=== PATIENT | male | born 1970 | race Caucasian/White ===

== ENCOUNTER 2016-12-19 23:14 | Emergency (ER) | payer BC ==
--- NOTE | 2016-12-19 23:55 | PDOC ---
History of Present Illness - General Stated Complaint: RT HAND INJURY Time Seen by Provider: 12/19/16 23:36 History Source: Patient Exam Limitations: Intoxication - History of Present Illness Initial Comments: 12/19/16 23:53 46yo Male patient w/ PmHx: Mitral Valve prolapse, GERD presents to ED c/o right hand injury. Patient states he was "sparing with a friend practicing mixed martial arts" when injury occurred. Patient denies any other complaints at this time. Patient appears under the influence of alcohol during examination. Occurred: reports: just prior to arrival Severity: reports: severe Upper Extremity Pain Location: right: hand Method of Injury: reports: other (See HPI) Modifying Factors: improves with: None Extremity Pain Location - Extremity Pain Location Extremity Pain Locations: right: 5th finger, hand Past History - Travel Traveled outside of the country in the last 30 days: No Close contact w/someone who was outside of country & ill: No - Past Medical History Allergies/Adverse Reactions: Allergies Allergy/AdvReac Type Severity Reaction Status Date / Time No Known Drug Allergies Allergy Verified 12/20/16 00:01 Home Medications: Ambulatory Orders Aspirin [ASA -] 81 mg PO DAILY 03/15/14 Metoprolol Tartrate 50 mg PO DAILY 03/15/14 Oxycodone HCl/Acetaminophen [Percocet 5-325 mg Tablet] 1 tab PO Q4H PRN Alprazolam 0.25 mg PO PRN 10/30/15 Celecoxib [Celebrex] 200 mg PO BID 10/30/15 Cholecalciferol (Vitamin D3) [Vitamin D] 2,000 unit PO DAILY 10/30/15 Cyclobenzaprine HCl [Flexeril] 5 mg PO HS 10/30/15 Folic Acid 1 mg PO DAILY 10/30/15 Omeprazole [Prilosec (RX)] 20 mg PO DAILY 10/30/15 Sulfasalazine [Azulfidine] 1,000 mg PO BID 10/30/15 Cefuroxime Axetil [Ceftin] 500 mg PO BID #10 tablet 11/01/15 Methotrexate Sodium [Methotrexate] 9 tab PO WEEKLY 11/01/15 Oxycodone HCl/Acetaminophen [Percocet 5-325 mg Tablet -] 1 tab PO Q4H PRN #20 tablet 11/01/15 Ibuprofen [Motrin -] 600 mg PO Q6H PRN #30 tablet 12/20/16 Oxycodone HCl/Acetaminophen [Percocet 5-325 mg Tablet] 1 tab PO Q6H PRN #20 tablet MDD 4 TABS 12/20/16 Anemia: No Asthma: No Cancer: No Cardiac Disorders: Yes (mvp, A FIB) CVA: No COPD: No CHF: No Dementia: No Diabetes: No GI Disorders: Yes (gerd) Disorders: No HTN: No Hypercholesterolemia: No Liver Disease: No Seizures: No Thyroid Disease: No - Surgical History Abdominal Surgery: No Appendectomy: No Cardiac Surgery: No Cholecystectomy: No Lung Surgery: No Neurologic Surgery: No Orthopedic Surgery: No - Immunization History Td Vaccination: Yes TDAP Vaccination: No Immunization Up to Date: (tetanus 4 yrs ago) - Psycho/Social/Smoking Cessation Hx Anxiety: No Suicidal Ideation: No Smoking Status: No Smoking History: Never smoked Years of Tobacco Use: 0 Have you smoked in the past 12 months: No Number of Cigarettes Smoked Daily: 0 Cigars Per Day: 0 Hx Alcohol Use: Yes (social) Drug/Substance Use Hx: Yes (daily) Substance Use Type: None, Marijuana Hx Substance Use Treatment: No Review of Systems - Review of Systems Able to Perform ROS?: Yes Is the patient limited Mauritanian proficient: No Musculoskeletal: Yes: Other (Hand injury with swelling.) All Other Systems: Reviewed and Negative *Physical Exam - Physical Exam General Appearance: Yes: Nourished, Appropriately Dressed, Alcohol on Breath. No: Apparent Distress, Mild Distress, Moderate Distress, Severe Distress Neck: positive: Trachea midline, Supple. negative: Decreased range of motion, Stridor, Lymphadenopathy (R), Lymphadenopathy (L) Respiratory/Chest: positive: Lungs Clear, Normal Breath Sounds. negative: Respiratory Distress, Accessory Muscle Use, Labored Respiration, Rapid RR Cardiovascular: positive: Regular Rhythm, Regular Rate. negative: Edema, JVD, Murmur Musculoskeletal: positive: Normal Inspection. 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 ED Treatment Course - LABORATORY CBC & Chemistry Diagram: 12/20/16 00:41 12/20/16 00:41 - RADIOLOGY Radiology Studies Ordered: Category Date Time Status WRIST W/HAND-RIGHT* [RAD] Stat Radiology 12/19/16 23:49 Ordered *DC/Admit/Observation/Transfer Diagnosis at time of Disposition: Boxer's fracture Qualifiers: Encounter type: initial encounter Fracture type: closed Qualified Code(s): S62.309A - Unspecified fracture of unspecified metacarpal bone, initial encounter for closed fracture - Discharge Dispostion Disposition: HOME Condition at time of disposition: Improved Admit: No - Prescriptions Prescriptions: Ibuprofen [Motrin -] 600 mg PO Q6H PRN #30 tablet PRN Reason: Mild Pain Oxycodone HCl/Acetaminophen [Percocet 5-325 mg Tablet] 1 tab PO Q6H PRN #20 tablet MDD 4 TABS PRN Reason: Severe Pain - Referrals Referrals: Ozzie Rodriguez MD [Primary Care Provider] - Howard Sharpe MD [Staff Physician] - - Patient Instructions Printed Discharge Instructions: How to Use a Sling, DI for Boxer's Fracture Additional Instructions: FOLLOW UP WITH DR. SHARPE (ORTHOPEDIC) THIS WEEK. CALL TO SCHEDULE APPOINTMENT. YOU MUST SEE AN ORTHOPEDIC THIS WEEK. KEEP SPLINT APPLIED. DO NOT REMOVE OR YOU RISK CAUSING FURTHER INJURY. CONTINUE TO APPLY COLD COMPRESS TO AFFECTED AREA. MOTRIN FOR MILD PAIN AND PERCOCET FOR SEVERE PAIN. KEEP ARM IN SLING WHILE OUT OF BED, KEEP ARM ELEVATED ON TOP OF PILLOW WHILE RESTING. RETURN IF ANY CONCERNS FOR FURTHER EVALUATION. Print Language: MOLDOVAN - Post Discharge Activity Work/School Note: Back to Work
[2016-12-20 00:02] VITALS: BP 138/79; PULSE 98; TEMP 97.6; BMI 27.5
[2016-12-20 01:05] LABS: BASOPHIL 0.6 % (0-2.0); EOSINOPHIL 0.5 % (0-4.5); MCH 31.4 pg (25.7-33.7); MEAN CELL VOLUME 92.2 fl (80-96); MEAN PLT VOLUME 7.1 fl (7.5-11.1); NEUTROPHILS 35.7 % (42.8-82.8); PLATELET COUNT 224 K/MM3 (134-434); RDW 13.6 % (11.9-15.9); WHITE BLOOD COUNT 3.6 K/mm3 (4.0-10.0)
[2016-12-20 01:25] LABS: ALBUMIN 4.4 g/dl (3.4-5.0); ALK PHOS 51 U/L (45-117); ANION GAP 10 (8-16); BILIRUBIN,TOTAL 0.7 mg/dL (0.2-1.0); CALCIUM 8.6 mg/dL (8.5-10.1); CO2 29 mmol/L (21-32); CREATININE 0.8 mg/dL (0.7-1.3); GLUCOSE,RANDOM 98 mg/dL (74-106); SGOT/AST 21 U/L (15-37); SGPT/ALT 30 U/L (12-78); TOT PROT 7.4 g/dl (6.4-8.2)
== END 2016-12-20 03:16 | disposition home or self-care (01) ==
LOC: JER 23:14
PROC: 2W3CX1Z Immobilization of Right Lower Arm using Splint (ICD-10-PCS; principal; 2016-12-19)
DX: S62.396A Other fracture of fifth metacarpal bone, right hand, initial encounter for closed fracture (principal); W50.0XXA Accidental hit or strike by another person, initial encounter; Y93.75 Activity, martial arts; Y92.89 Other specified places as the place of occurrence of the external cause; Y99.8 Other external cause status
CPT/HCPCS: 36415; 73110-TC-RT; 73130-TC-RT; 80053; 80307; 85025; 99281-25

== ENCOUNTER 2016-12-21 12:04 | Emergency (ER) | payer BC ==
[2016-12-21 12:09] VITALS: BP 131/90; PULSE 88; TEMP 98.3; BMI 27.5
--- NOTE | 2016-12-21 13:09 | PDOC ---
History of Present Illness - General Chief Complaint: Pain Stated Complaint: SWOLLEN RT ARM Time Seen by Provider: 12/21/16 12:17 History Source: Patient Exam Limitations: No Limitations - History of Present Illness Initial Comments: 12/21/16 12:46 46 year old male with history of htn, mitral valve prolapse, GERD and anxiety presents complaining of swelling of right hand, has a boxer splint in place. Reports being seen yesterday for boxer fracture went home, could not tolerate the splint so he removed it . He and his girlfriend replaced it but concerned that it is on incorrectly because of pain and swelling in hand. Taking percocets which is effective. Requesting correct replacement of splint. 12/21/16 18:48 Timing/Duration: 24 hours Severity: mild Modifying Factors: improves with: immobilization, medication Associated Symptoms: reports: denies symptoms Aspirin Received prior to arrival: Yes: no aspirin today Asa Contraindications(Core Measure): No: Allergy Beta Benita Contraindications(Core Measure): No: Not Prescribed Beta Benita Given by EMS(Core Measure): No Beta Benita Taken at Home(Core Measure): No Beta Benita Not Indicated at this Time(Core Measure): No Past History - Travel Traveled outside of the country in the last 30 days: No Close contact w/someone who was outside of country & ill: No - Past Medical History Allergies/Adverse Reactions: Allergies Allergy/AdvReac Type Severity Reaction Status Date / Time No Known Drug Allergies Allergy Verified 12/21/16 12:06 Home Medications: Ambulatory Orders Aspirin [ASA -] 81 mg PO DAILY 03/15/14 Metoprolol Tartrate 50 mg PO DAILY 03/15/14 Oxycodone HCl/Acetaminophen [Percocet 5-325 mg Tablet] 1 tab PO Q4H PRN Alprazolam 0.25 mg PO PRN 10/30/15 Celecoxib [Celebrex] 200 mg PO BID 10/30/15 Cholecalciferol (Vitamin D3) [Vitamin D] 2,000 unit PO DAILY 10/30/15 Cyclobenzaprine HCl [Flexeril] 5 mg PO HS 10/30/15 Folic Acid 1 mg PO DAILY 10/30/15 Omeprazole [Prilosec (RX)] 20 mg PO DAILY 10/30/15 Sulfasalazine [Azulfidine] 1,000 mg PO BID 10/30/15 Cefuroxime Axetil [Ceftin] 500 mg PO BID #10 tablet 11/01/15 Methotrexate Sodium [Methotrexate] 9 tab PO WEEKLY 11/01/15 Oxycodone HCl/Acetaminophen [Percocet 5-325 mg Tablet -] 1 tab PO Q4H PRN #20 tablet 11/01/15 Ibuprofen [Motrin -] 600 mg PO Q6H PRN #30 tablet 12/20/16 Oxycodone HCl/Acetaminophen [Percocet 5-325 mg Tablet] 1 tab PO Q6H PRN #20 tablet MDD 4 TABS 12/20/16 Anemia: No Asthma: No Cancer: No Cardiac Disorders: Yes (mvp, A FIB) CVA: No COPD: No CHF: No Dementia: No Diabetes: No GI Disorders: Yes (gerd) Disorders: No HTN: No Hypercholesterolemia: No Liver Disease: No Seizures: No Thyroid Disease: No - Surgical History Abdominal Surgery: No Appendectomy: No Cardiac Surgery: No Cholecystectomy: No Lung Surgery: No Neurologic Surgery: No Orthopedic Surgery: No - Immunization History Td Vaccination: Yes TDAP Vaccination: No Immunization Up to Date: (tetanus 4 yrs ago) - Psycho/Social/Smoking Cessation Hx Anxiety: No Suicidal Ideation: No Smoking Status: No Smoking History: Never smoked Years of Tobacco Use: 0 Have you smoked in the past 12 months: No Number of Cigarettes Smoked Daily: 0 Cigars Per Day: 0 Information on smoking cessation initiated: No Hx Alcohol Use: No Drug/Substance Use Hx: No Substance Use Type: None, Marijuana Hx Substance Use Treatment: No Review of Systems - Review of Systems Able to Perform ROS?: Yes Is the patient limited Nauruan proficient: No Constitutional: No: Chills, Fever HEENTM: No: Double Vision, Ear Discharge, Nose Congestion, Throat Pain, Throat Swelling Respiratory: No: Cough, Orthopnea, Shortness of Breath, Productive cough Cardiac (ROS): No: Chest Pain, Lightheadedness ABD/GI: No: Difficulty Swallowing, Nausea, Vomiting, Indigestion : No: Burning, Hematuria, Incontinence Musculoskeletal: Yes: Other (right hand pain and swelling) Integumentary: No: Bruising, Erythema Neurological: No: Headache, Numbness, Paresthesia *Physical Exam - Vital Signs Last Vital Signs Temp Pulse Resp BP Pulse Ox 98.3 F 88 18 131/90 100 12/21/16 12:06 12/21/16 12:06 12/21/16 12:06 12/21/16 12:06 12/21/16 12:06 - Physical Exam General Appearance: Yes: Nourished, Appropriately Dressed. No: Apparent Distress HEENT: positive: EOMI, CARLINE, TMs Normal, Pharynx Normal Neck: positive: Supple. negative: Lymphadenopathy (R), Lymphadenopathy (L) Respiratory/Chest: positive: Lungs Clear, Normal Breath Sounds. 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-XII NML intact, Fully Oriented, Alert Medical Decision Making - Medical Decision Making 12/21/16 13:09 46 year old male with history of Htn and mitral valve prolapse and GERD, removed cast causing pain and swelling of right hand -boxer splint replaced: strongly recommend leaving splint in place until seen by orthopedics -continue with pain regimen 12/21/16 18:49 *DC/Admit/Observation/Transfer Diagnosis at time of Disposition: Boxer's fracture Qualifiers: Encounter type: sequela Qualified Code(s): S62.309S - Unspecified fracture of unspecified metacarpal bone, sequela - Discharge Dispostion Disposition: HOME Condition at time of disposition: Good Admit: No - Referrals Referrals: Duran Rizo MD [Staff Physician] - - Patient Instructions Printed Discharge Instructions: How to Use a Sling, DI for Boxer's Fracture Additional Instructions: Keep splint in place and dry. Call orthopedic office first thing in am for follow up appointment. Take pain medication as previously directed - Post Discharge Activity Work/School Note: Back to Work
== END 2016-12-21 13:14 | disposition home or self-care (01) ==
LOC: JERFT 12:04
PROC: 2W3CX1Z Immobilization of Right Lower Arm using Splint (ICD-10-PCS; principal; 2016-12-21)
DX: S62.346D Nondisplaced fracture of base of fifth metacarpal bone, right hand, subsequent encounter for fracture with routine healing (principal)
CPT/HCPCS: 99282-25

== ENCOUNTER 2017-01-09 11:03 | Day surgery (SDC) | payer BC ==
[2017-01-08 10:43] VITALS: BMI 28.8
[2017-01-09 12:42] VITALS: TEMP 98.3
[2017-01-09 13:32] VITALS: BP 127/82; PULSE 80
--- NOTE | 2017-01-12 13:33 | PATH ---
Surgical Pathology Report Patient Name: ARPIT DURANT Med. Rec. #: [id number] /Age/Gender: 1970 (Age: 46) / M Account: [id number] Location: [facility]-ENDOSCOPY Taken: 01/09/2017 Received: 01/09/2017 Reported: 01/12/2017 Physicians: Dee Dee Shine M.D. Specimen(s) Received A: BX ILEUM B: BX CECUM Clinical History Altered bowel habits, unexplained diarrhea, polyp surveillance Spastic colon Final Diagnosis A. ILEUM, BIOPSY: ILEUM MUCOSA WITHOUT SIGNIFICANT PATHOLOGIC CHANGES. NO EVIDENCE OF ACTIVE INFLAMMATION, SIGINIFICANT ARCHITECTURAL DISTORTION, GRANULOMATA OR DYSPLASIA; NO INCREASE IN INTRAEPITHELIAL LYMPHOCYTES. B. COLON, CECUM, BIOPSY: COLONIC MUCOSA WITH FOCAL REACTIVE LYMPHOID AGGREGATE. NO EVIDENCE OF ACTIVE INFLAMMATION, SIGINIFICANT ARCHITECTURAL DISTORTION, GRANULOMATA OR DYSPLASIA; NO EVIDENCE OF MICROSCOPIC COLITIS. Electronically Signed Aaron Guardado M.D. Gross Description A. Received in formalin, labeled "biopsy ileum" is a mims, irregular portion of soft tissue measuring 0.4 cm in greatest dimension. The specimen is submitted in toto in one cassette. B. Received in formalin, labeled "biopsy cecum" are 3 mims, irregular portions of soft tissue ranging from 0.2-0.3 cm in greatest dimension. The specimens are submitted in toto in one cassette. 01/09/201701/09/2017
== END 2017-01-09 13:43 | disposition home or self-care (01) ==
LOC: JASU-ENDO 11:03
PROVIDERS: ATTEND Internal Medicine Gastroenterology
PROC: 0DBB8ZX Excision of Ileum, Via Natural or Artificial Opening Endoscopic, Diagnostic (ICD-10-PCS; 2017-01-09)
PROC: 0DBH8ZX Excision of Cecum, Via Natural or Artificial Opening Endoscopic, Diagnostic (ICD-10-PCS; principal; 2017-01-09 12:00)
DX: K58.0 Irritable bowel syndrome with diarrhea (principal); Z86.010 Personal history of colon polyps
CPT/HCPCS: 87045; 87046; 87177; 87186; 87207; 87209; 87328; 87329; 88305-TC

== ENCOUNTER 2017-03-23 10:02 | Emergency (ER) | payer BC ==
[2017-03-23 10:13] VITALS: BP 148/86; PULSE 88; TEMP 97.4; BMI 28.2
[2017-03-23] MEDS ORDERED: DIPHTH,PERTUSS(ACELL),TET 0.5 ML DISP.SYRIN IM ONE (11:23)
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
== END 2017-03-23 12:33 | disposition home or self-care (01) ==
LOC: JERFT 10:02
PROC: 3E0234Z Introduction of Serum, Toxoid and Vaccine into Muscle, Percutaneous Approach (ICD-10-PCS; principal; 2017-03-23)
PROC: 0HDNXZZ Extraction of Left Foot Skin, External Approach (ICD-10-PCS; 2017-03-23)
DX: S91.322A Laceration with foreign body, left foot, initial encounter (principal); W26.8XXA Contact with other sharp object(s), not elsewhere classified, initial encounter; Y93.11 Activity, swimming; Y92.832 Beach as the place of occurrence of the external cause; Y99.8 Other external cause status
CPT/HCPCS: 90715; 99281-25

== ENCOUNTER 2023-08-25 04:19 | Day surgery (SDC) | payer BC ==
[2023-08-20 11:48] VITALS: BMI 27.5
[2023-08-25 11:48] VITALS: TEMP 97
[2023-08-25 14:11] VITALS: BP 112/55; PULSE 77; RESP 15
== END 2023-08-25 12:40 | disposition home or self-care (01) ==
LOC: JASU-ENDO 04:19
PROVIDERS: ATTEND Internal Medicine Gastroenterology
PROC: 0DJD8ZZ Inspection of Lower Intestinal Tract, Via Natural or Artificial Opening Endoscopic (ICD-10-PCS; principal; 2023-08-25 09:15)
DX: Z12.11 Encounter for screening for malignant neoplasm of colon (principal); K64.8 Other hemorrhoids; K57.30 Diverticulosis of large intestine without perforation or abscess without bleeding; Z86.010 Personal history of colon polyps

== ENCOUNTER 2023-12-24 04:20 | Day surgery (SDC) | payer BC ==
[2023-12-23 09:25] VITALS: BMI 26.9
[2023-12-24] MEDS ORDERED: MIDAZOLAM HCL 2 MG/2 ML SINGLE DOSE VIAL ONE (08:03)
[2023-12-24 08:30] VITALS: TEMP 98.2
[2023-12-24 08:45] VITALS: RESP 18
[2023-12-24 08:54] VITALS: PULSE 81
[2023-12-24 09:01] VITALS: BP 137/94
[2023-12-24 09:14] LABS: PH,URINE 5.5 (5.0-8.0); URINE APPEARANCE Error; URINE BILIRUBIN NEGATIVE (NEGATIVE); URINE COLOR YELLOW; URINE GLUCOSE (UA) NEGATIVE (NEGATIVE); URINE KETONE NEGATIVE (NEGATIVE); URINE LEUK ESTERASE NEGATIVE (NEGATIVE); URINE NITRITE NEGATIVE (NEGATIVE); URINE PROTEIN NEGATIVE (NEGATIVE); URINE UROBILINOGEN 0.2 mg/dL (0.2-1.0)
[2023-12-24 09:15] LABS: BASO % 0.6 % (0-2.0); EOS % 2.2 % (0-4.5); HEMOGLOBIN 13.4 GM/dL (11.7-16.9); LYMPH % 51.8 % (8-40); MCH 31.5 pg (25.7-33.7); MCHC 33.4 g/dl (32.0-35.9); MEAN CELL VOLUME 94.2 fl (80-96); MONO % 10.9 % (3.8-10.2); NEUT % 34.5 % (42.8-82.8); PLATELET COUNT 238 10^3/uL (134-434); RBC 4.25 M/mm3 (4.00-5.60); RDW 13.3 % (11.9-15.9); WHITE BLOOD COUNT 4.7 K/mm3 (4.0-10.0)
[2023-12-24 09:44] LABS: POTASSIUM 4.1 mmol/L (3.5-5.1)
[2023-12-24 09:50] LABS: ALBUMIN 3.5 g/dl (3.4-5.0); BLOOD UREA NITROGEN 12.2 mg/dL (7-18)
[2023-12-24 09:53] LABS: CREATININE 0.7 mg/dL (0.55-1.3)
[2023-12-24 09:54] LABS: BILIRUBIN,TOTAL 0.6 mg/dL (0.2-1)
[2023-12-24 09:56] LABS: TOT PROT 6.6 g/dl (6.4-8.2)
[2023-12-24 09:58] LABS: ERYTHROCYTE SEDIMENTATION RATE 5 mm/hr (0-20)
== END 2023-12-24 09:10 | disposition home or self-care (01) ==
LOC: JASU-ENDO 04:20
PROVIDERS: ATTEND Internal Medicine Gastroenterology
PROC: 0DB78ZX Excision of Stomach, Pylorus, Via Natural or Artificial Opening Endoscopic, Diagnostic (ICD-10-PCS; 2023-12-24)
PROC: 0DB68ZX Excision of Stomach, Via Natural or Artificial Opening Endoscopic, Diagnostic (ICD-10-PCS; principal; 2023-12-24 08:30)
DX: K29.50 Unspecified chronic gastritis without bleeding (principal)
CPT/HCPCS: 36415; 80053; 80061; 81003; 82306; 82607; 83036; 84153; 85025; 85651; 88305-TC; 88342-TC